=== PATIENT | male | born 1965 | race Caucasian/White ===

== ENCOUNTER 2021-01-10 09:34 | Emergency (ER) | payer BC, SELFPAY ==
[2021-01-10 09:36] VITALS: BP 91/62; PULSE 101; RESP 17; TEMP 36.1; O2SAT 97; BMI 29.9
--- NOTE | 2021-01-10 09:56 | RAD_ITS ---
STUDY: X-RAY CHEST REASON FOR EXAM: Male, 55 years old. Patient is diaphoretic. Tachycardia and shortness of breath. TECHNIQUE: Single AP portable view of the chest. COMPARISON: None. FINDINGS: EKG electrodes are seen. There is evidence of a left lower lobe infiltration. There is no demonstrated pleural abnormality. Normal size heart. Normal mediastinum and gallito. Normal visualized pulmonary arteries. Normal visualized aortic arch and descending thoracic aorta. Normal visualized thoracic spine. Normal visualized ribs, clavicles, and shoulders. There is no demonstrated abnormality of the visualized soft tissue structures of the upper abdomen. RAD/Chest 1 View (Portable) IMPRESSION: Left lower lobe infiltrate. Electronically Signed: Jerome Mcmillan MD at 11:06 EST , Service support ,
--- NOTE | 2021-01-10 09:56 | EKG12_ITS ---
Test Reason : CP Blood Pressure : / mmHG Vent. Rate : 095 BPM Atrial Rate : 095 BPM P-R Int : 148 ms QRS Dur : 080 ms QT Int : 370 ms P-R-T Axes : 057 006 060 degrees QTc Int : 464 ms with sinus arrhythmia Normal ECG Confirmed by CASTILLO SANTOS, MICHEAL ([id number]), industrial editor CHARLINE MCALLISTER ([id number]) on 01/13/2021 1:11:57 PM Referred By: MARILYN/CHRISTINA Confirmed By:MICHEAL CHONG MD
--- NOTE | 2021-01-10 09:57 | EX.ED.DYSGE1 ---
HPI History of Present Illness Chief Complaint: Fall Informant: patient Onset/Context/Timing Onset: Today Current Severity: Gone Maximum Severity: Severe Narrative Narrative: Patient awoke at about 330 this morning, 6 hours prior to arrival, to use the restroom. heard him fall in the bathroom, so she got up to check on him and he was having trouble standing and falling again. Patient does not remember if he felt dizzy or not but has had dizzy spells in the past off and on. He states before going to bed he had about a 12 pack of beer yesterday. He denies injuring himself, he complains of low back pain but states that has been there for 6 months or more, worse with movement and lifting, better with resting, occasionally it has radiated down his left leg but not now. He denies any history of bowel or bladder dysfunction associated with any of this or this morning. He denies any abdominal pain, nausea, vomiting but he was diaphoretic when he got back to bed and short of breath. He admits to having some chest discomfort at 1 point in time but does not remember the details and that is gone now. He tried to get back to sleep, but he toss and turn for a while, states she checked on him again and he went back to sleep maybe around 6:30 AM, and at 1 point during that time he was diaphoretic again, dripping with sweat. Patient denies injuring himself from the falls, he states he feels fine now except for the discomfort in his low back which is similar to how it has been for the past 6 months. He denies any recent known illness. No recent long travel, immobilization, hospitalization, or surgery. No history of DVT or PE, no focal pain or swelling in lower extremities. No known cardiac history. He vapes but does not smoke cigarettes. [facility] Medical History EtOH dependence Home Medications azithromycin 250 mg PO DAILY #4 tablet 01/10/21 [Rx Last Taken Unknown] Allergy/AdvReac Type Severity Reaction Status Date / Time Penicillins Allergy Hives Verified 01/10/21 09:35 Social History Smoking Status: Current every day smoker tobacco type: e-cigarettes ROS ROS ED Constitutional Constitutional ED: Reports as per HPI and other Details: Diaphoresis resolved ; Denies chills or fever(s) Eyes Eyes: Denies change in vision or diplopia ENT ENT ED: Denies rhinorrhea or sore throat Cardiovascular Cardiovascular: Denies chest pain or palpitations Respiratory/Chest Respiratory/Chest: Reports as per HPI and other Details: Dyspnea and chest pain resolved ; Denies cough Gastrointestinal Gastrointestinal: Denies abdominal pain, diarrhea, nausea or vomiting Genitourinary Genitourinary ED: Denies dysuria or hematuria Musculoskeletal Musculoskeletal: Reports back pain; Denies extremity pain or neck pain Integumentary Denies abscess or rash Neurologic Neurologic: Denies headache(s), paresthesias or weakness Psychiatric Psychiatric: Denies anxiety or suicidal thoughts EXAM Physical Exam Const Vital Signs: 01/10/21 09:36 01/10/21 09:47 01/10/21 12:02 Temperature 96.9 F L Temperature Source Temporal Pulse Rate 101 H 87 Respiratory Rate 17 18 Respiratory Effort Normal Non-Labored Blood Pressure 91/62 102/62 Blood Pressure Mean 71 75 Pulse Ox 97 95 Oxygen Delivery Method Room Air Room Air 01/10/21 14:12 Temperature Temperature Source Pulse Rate 75 Respiratory Rate 20 H Respiratory Effort Blood Pressure 104/67 Blood Pressure Mean 79 Pulse Ox 97 Oxygen Delivery Method Room Air Positive well nourished and well developed Constitutional Narrative: Well-appearing in no distress. Ambulatory without difficulty. Alert and oriented x3. General Appearance ED: well developed and NAD HEENT Reports moist mucous membranes normocephalic and atraumatic Eyes PERRL and EOMs intact bilaterally Neck full ROM and supple Resp normal respiratory effort and clear to auscultation bilaterally Cardio regular rate, regular rhythm and no murmurs Rate: Negative for tachycardic GI non-tender, non-distended and no masses; Negative for hepatosplenomegaly Auscultation: normoactive bowel sounds Palpation: soft; Negative for pulsatile mass Back/Spine no CVA tenderness, normal to inspection and straight leg raise negative bilaterally Back/Spine Narrative: Mild tenderness right lumbosacral paraspinal musculature, no other areas of tenderness. Normal on inspection. No midline tenderness. General Back: other FROM Extremity normal to inspection, no calf tenderness and no pedal edema General Extremety ED: Negative for edema, pulses abnormal or tenderness General Extremity: Negative for edema or pulses abnormal Neuro oriented x3, CN's II-XII intact bilaterally, no sensory deficits noted and deep tendon reflexes 2+ bilaterally Sensorium / Orientation: awake and alert Meningeal Signs: no meningeal signs Motor Exam: strength 5/5 throughout and clonus absent Skin no rashes or lesions noted and no wounds MDM MDM MDM Narrative Medical decision making narrative: Blood work is only remarkable for a slightly elevated D-dimer even when corrected for age, at 0.58. His EKG is normal, his chest x-ray actually shows a left lower lobe infiltrate. He was sent for CT regardless, to rule out pulmonary embolus. It did show the infiltrate and was negative for PE. Patient was started on antibiotics, his vital signs are normal he is ambulatory without symptoms, and I think outpatient treatment is reasonable given all of this and that his cardiac work-up is negative. Close outpatient follow-up advised. Lab Data Attestation: I reviewed the patient's lab results. Labs: Laboratory Results - last 24 hr 01/10/21 01/10/21 01/10/21 10:16 10:16 10:16 WBC 11.9 H RBC 3.90 L Hgb 13.7 Hct 40.0 MCV 102.6 H MCH 35.1 H MCHC 34.3 RDW Std Deviation 47.3 H RDW Coeff of Laurie 12.6 Plt Count 169 MPV 10.2 Immature Gran % (Auto) 0.300 Neut % (Auto) 86.4 H Lymph % (Auto) 4.8 L [place] % (Auto) 8.2 Eos % (Auto) 0.1 Baso % (Auto) 0.2 Absolute Neuts (auto) 10.3 H Absolute Lymphs (auto) 0.57 L Nucleated RBC % 0 Platelet Estimate ADEQUATE Macrocytosis RARE D-Dimer Quant (PE/DVT) 0.58 H* Sodium 135 L Potassium 4.5 Chloride 108 H Carbon Dioxide 20.0 L Anion Gap 7 BUN 13 Creatinine 0.81 Estim Creat Clear Calc 107.17 Est GFR (MDRD) Af Amer 127 Est GFR (MDRD) Non-Af 105 BUN/Creatinine Ratio 16.1 Glucose 85 Calcium 9.0 Total Bilirubin 0.60 AST 14 L ALT 23 Alkaline Phosphatase 73 Troponin I High Sens 4 Total Protein 7.1 Albumin 3.7 Globulin 3.4 Albumin/Globulin Ratio 1.1 Urine Color Urine Clarity Urine pH Ur Specific [place] Urine Protein Urine Glucose (UA) Urine Ketones Urine Occult Blood Urine Nitrite Urine Bilirubin Urine Urobilinogen Ur Leukocyte Esterase Urine RBC Urine WBC Ur Squamous Epith Cells Urine Bacteria Urine Mucus 01/10/21 10:38 WBC RBC Hgb Hct MCV MCH MCHC RDW Std Deviation RDW Coeff of Laurie Plt Count MPV Immature Gran % (Auto) Neut % (Auto) Lymph % (Auto) [place] % (Auto) Eos % (Auto) Baso % (Auto) Absolute Neuts (auto) Absolute Lymphs (auto) Nucleated RBC % Platelet Estimate Macrocytosis D-Dimer Quant (PE/DVT) Sodium Potassium Chloride Carbon Dioxide Anion Gap BUN Creatinine Estim Creat Clear Calc Est GFR (MDRD) Af Amer Est GFR (MDRD) Non-Af BUN/Creatinine Ratio Glucose Calcium Total Bilirubin AST ALT Alkaline Phosphatase Troponin I High Sens Total Protein Albumin Globulin Albumin/Globulin Ratio Urine Color Yellow Urine Clarity Clear Urine pH 6.0 Ur Specific [place] 1.010 Urine Protein Negative Urine Glucose (UA) Normal Urine Ketones 15 H Urine Occult Blood 10 H Urine Nitrite Negative Urine Bilirubin Negative Urine Urobilinogen Normal Ur Leukocyte Esterase Negative Urine RBC 0-5 SEEN Urine WBC 0 SEEN Ur Squamous Epith Cells 0-5 SEEN Urine Bacteria 0 SEEN Urine Mucus 0 SEEN Radiography Diagnostic Testing: Clinical Impression(s) from Imaging Studies Chest X-Ray 01/10/21 09:56 IMPRESSION: Left lower lobe infiltrate. Electronically Signed: Jerome Mcmillan MD at 11:06 EST , Service support , Chest CTA 01/10/21 11:35 IMPRESSION: No evidence of pulmonary embolism. Patchy infiltrate in the left upper lobe as well as infiltrate in the left lower lobe. Electronically Signed: Jerome Mcmillan MD at 12:38 EST , Service support , Rhythm Strip Rhythm Strip: Sinus Rhythm Rate: 98 Ectopy: None EKG Initial EKG: Attestation: I personally reviewed and interpreted this EKG as follows: Interpretation: Sinus Rhythm and No Acute Injury Pattern Comments: Normal EKG Discharge Plan Triage Chief Complaint: Fall ED Provider: Xu Mike Dx/Rx/DC Orders Clinical Impression: Pneumonia Instructions: ED Pneumonia (Adult) Prescriptions: New azithromycin [azithromycin] 250 MG tablet 250 mg PO DAILY Qty: 4 RF: 0 Primary Care Provider: Becky Haney Referrals: Becky Haney DO [Primary Care Provider] - 3-5 Days Disposition Disposition: Home, Self Care
[2021-01-10 10:22] LABS: Absolute Lymphocyte Count 0.57 X10^3/uL (0.83-4.51); Absolute Neutrophil Count 10.3 X10^3/uL (2.0-7.7); Basophil# 0.02 X10^3/uL; Basophil% 0.2 % (0-1); Differential Indicated SCAN CRITERIA MET; Eosinophil# 0.01 X10^3/uL; Eosinophils% 0.1 % (0-5); Hemoglobin 13.7 g/dL (13.0-16.5); Lymphocyte # 0.57 X10^3/ul (0.83-4.51); Lymphocyte % 4.8 % (19-41); Mean Corp Hgb Conc 34.3 g/dL (32-36); Mean Corpuscular Hgb 35.1 pg (27.0-32.0); Mean Corpuscular Volume 102.6 fL (80-94); Mean Platelet Vol. 10.2 fl (6.2-12.0); Monocyte# 0.98 X10^3/uL; Monocyte% 8.2 % (0-10); NRBC Flagged by Analyzer 0 % (0-5); Neutrophil # 10.29 X10^3/uL (2.7-7.7); Neutrophil % 86.4 % (47-70); POSITIVE DIFFERENTIAL YES; Platelet Count 169 K/mm3 (150-450); RBC Distribution Width CV 12.6 % (11.6-14.6); RBC Distribution Width SD 47.3 fl (35.1-43.9); White Blood Count 11.9 K/mm3 (4.4-11.0)
[2021-01-10 10:35] LABS: D-Dimer Quantitative (DVT/PE) 0.58 FEU/ug/m (0.27-0.49)
[2021-01-10 10:38] LABS: ALB/GLOB Ratio 1.1 RATIO (0.9-2.4); AST(SGOT) 14 U/L (15-37); Alanine Aminotransfer ALT/SGPT 23 U/L (16-61); Albumin, Serum 3.7 g/dL (3.2-5.0); Alkaline Phosphatase 73 U/L (45-117); Anion Gap 7 (5-15); BUN 13 mg/dL (7-18); BUN/Creat Ratio 16.1 RATIO (10-20); Chloride 108 mmol/L (98-107); Creatinine, Serum 0.81 mg/dL (0.70-1.30); EST Glomerular Filtration Rate 105 mL/min (>60); Est Glom Filt Rate - Afr Amer 127 mL/min (>60); Estimated Creatinine Clearance 107.17 ml/min; Globulin 3.4 g/dL (2.2-4.2); Glucose 85 mg/dL (74-106); Potassium 4.5 mmol/L (3.5-5.1); Protein, Total 7.1 g/dL (6.4-8.2); Sodium Level 135 mmol/L (136-145); Troponin-I HS 4 pg/mL (3.0-78.0)
[2021-01-10 10:39] LABS: Macrocytosis RARE; Platelet Estimate ADEQUATE (ADEQ)
[2021-01-10 10:42] LABS: Bacteria 0 SEEN /hpf (None Seen); Mucous, Urine 0 SEEN /hpf (<or=2+); White Blood Cells 0 SEEN /hpf (0-5)
[2021-01-10 10:45] LABS: Color, Urine Yellow (Yellow); Glucose, Dipstick Normal (Normal); Ketone-Dipstick 15 mg/dl (Negative); Leukocyte Esterase-Dipstick Negative /ul (Negative); Nitrite-Dipstick Negative (Negative); Occult Blood-Urine 10 /ul (Negative); Protein-Dipstick Negative (Negative); Urine Bilirubin Dipstick Negative (Negative); Urine Clarity Clear (Clear); Urine Urobilinogen Normal (Normal)
[2021-01-10 10:51] LABS: Red Blood Cells-Urine 0-5 SEEN /hpf (0-5); Squamous Epithelial Cells - UA 0-5 SEEN /hpf (0-5)
--- NOTE | 2021-01-10 11:35 | CT_ITS ---
STUDY: CTA CHEST REASON FOR EXAM: Male, 55 years old. Shortness of breath. Tachycardia. Diaphragmatic. Shortness of breath. RADIATION DOSAGE (If Supplied By Facility): CTDIvol = ( 14.46 ) mGy, DLP = ( 575.81 ) mGycm TECHNIQUE: The examination was performed with the intravenous administration of IV 100mL [id number]-[id number]. Post-processing of the angiographic images was performed, with multiplanar reformation and 3D reconstruction. Individualized dose optimization techniques were used for this CT. COMPARISON: Comparison is made with prior chest radiograph done earlier today. FINDINGS: Normal enhancement of the main pulmonary artery and right and left pulmonary arteries. Normal enhancement of the bilateral peripheral pulmonary arteries. There is no demonstrated pulmonary embolism. Normal thoracic aorta and visualized great vessels. There is no demonstrated aortic dissection. There are calcifications of the coronary arteries. Normal mediastinum. Normal hilar regions. Normal visualized trachea and bronchi. The lungs are well expanded. Patchy infiltrate in the posterior aspect of the left upper lobe. There is evidence of infiltration in the left lower lobe suggestive of a pneumonitis. Normal pleura. Normal chest wall structures. There are degenerative changes of thoracic spine. Normal visualized upper abdomen. CT/CTA Chest W/WO Contrast IMPRESSION: No evidence of pulmonary embolism. Patchy infiltrate in the left upper lobe as well as infiltrate in the left lower lobe. Electronically Signed: Jerome Mcmillan MD at 12:38 EST , Service support ,
[2021-01-10 12:02] VITALS: BP 102/62; PULSE 87; RESP 18; O2SAT 95
[2021-01-10] MEDS: 0.9% Normal Saline 1,000 ML 999 ML IV (12:07)
--- NOTE | 2021-01-10 12:09 | ED.RN ---
ANTIBIOTIC NOT STARTED YET D/T PT GOING TO CT FOR CTA
[2021-01-10] MEDS: Ceftriaxone 1 GM/50 ML BAG IV (12:59)
[2021-01-10] MEDS: Azithromycin 250 MG Tablet 500 MG PO (12:59)
[2021-01-10 14:12] VITALS: BP 104/67; PULSE 75; RESP 20; O2SAT 97
== END 2021-01-10 14:30 | disposition home or self-care (01) ==
PROVIDERS: Emergency Provider Emergency Medicine; PCP Family Medicine
DX: J18.9 Pneumonia, unspecified organism (principal); F17.290 Nicotine dependence, other tobacco product, uncomplicated
CPT/HCPCS: 71045; 71275; 80053; 81001; 84484; 85025; 85379; 93005; 96361; 96365; 99285; J7030; J7050; Q9967; A4216